=== PATIENT | female | born 1990 | race Caucasian/White ===

== ENCOUNTER 2017-12-03 08:09 | Emergency (ER) | payer BC ==
[2017-12-03] MEDS ORDERED: Famotidine 20 MG/2 ML SDV IVPUSH ONE (08:34)
--- NOTE | 2017-12-03 08:34 | EDM.PDOC ---
ED HPI GENERAL MEDICAL PROBLEM - General Chief Complaint: General Stated Complaint: Lip Swelling Time Seen by Provider: 12/03/17 08:25 Source of Information: Reports: Patient, Old Records ([facility] chart/EMR) - History of Present Illness INITIAL COMMENTS - FREE TEXT/NARRATIVE: The patient drove herself to the emergency room via private automobile for evaluation of mostly upper lip angioedema with symptoms occurring when she woke up this morning at about 7 AM. She denies any recent change in allergen exposure , change in medications, new clothing, insecticide exposure, etc. She has never had this happen before with no previous history of angioedema, etc. despite her known allergic rhinitis. Note that the patient has had a one-week history of nonspecific bilateral upper quadrant abdominal pain, which she currently rates at 3/10 with previous maximum discomfort at 8-10/10, with initial episode of some nausea, loose stools, and a couple of episodes of emesis a few days ago. She was evaluated by her regular provider, Madonna Lea PA-C, at [facility] in [place], with recent abdominal ultrasound on 11/28 showing some borderline splenomegaly and gallbladder enlargement without cholelithiasis, sludge, etc. No recent history of other abdominal pain, heartburn, diarrhea, melena, gross hematochezia, or any food intolerance, including fatty foods, etc. with borderline nausea at this time and a loose stool this morning.. She denies any gross hematuria, colic, or other UTI symptoms. The patient also denies any recent fever, cough, wheezing, dyspnea, etc.. She has not taken any medications for her discomfort to this point. Baby has remained active including this morning with no uterine contractions, vaginal discharge/spotting , or other signs of labor. Onset: Today, Gradual Onset Date: 12/03/17 Onset Time: 07:00 Duration: Getting Worse Location: Reports: Abdomen. Denies: Head, Face, Neck, Back, Upper Extremity, Left, Upper Extremity, Right, Lower Extremity, Right, Generalized, Radiates to Quality: Reports: Ache, Same as Previous Episode Severity: Mild Improves with: Reports: None Worsens with: Reports: None Context: Reports: Other (As above) Associated Symptoms: Reports: Nausea/Vomiting. Denies: No Other Symptoms, Confusion, Chest Pain, Cough, Fever/Chills, Headaches, Loss of Appetite, Malaise , Rash, Seizure, Shortness of Breath, Syncope, Weakness Treatments MANAGER TITLE: Reports: Other (see below) (None) Bilateral Upper Abdominal Pain Score (Numeric/FACES): 3 - Related Data Allergies Allergy/AdvReac Type Severity Reaction Status Date / Time No Known Allergies Allergy Verified 12/03/17 08:10 Home Meds: Home Meds Cyanocobalamin (Vitamin B-12) [Cyanocobalamin Injection] 1,000 mcg IJ Q30D 12/03 [History] Famotidine 20 mg PO BID #60 tablet 12/03/17 [Rx] Vit #108/Iron/FA [ One Tablet] 1 tab PO DAILY 12/03/17 [History ] diphenhydrAMINE [Benadryl] 50 mg PO Q4H PRN #100 cap 12/03/17 [Rx] Past Medical History HEENT History: Reports: Allergic Rhinitis, Impaired Vision, Other (See Below). Denies: Cataract, Glaucoma, Hard of Hearing, Macular Degeneration, Otitis Media , Retinal Detachment Other HEENT History: Seasonal allergies. Patient wears glasses and soft contacts. Cardiovascular History: Reports: None. Denies: Afib, Aneurysm, Arrhythmia, Blood Clots/VTE/DVT, CAD, Heart Murmur, High Cholesterol, Hypertension, ND, PVD , Syncope Respiratory History: Reports: Intubation, Previous, Other (See Below). Denies: Asthma, COPD, Intubation, Difficult, PE, Pneumothorax, Sleep Apnea Other Respiratory History: Reactive airway disease secondary to pneumonia in block breaker Gastrointestinal History: Reports: Chronic Diarrhea, GERD, Other (See Below). Denies: Celiac Disease, Chronic Constipation, Fecal Incontinence, Gastritis, GI Bleed, Hepatitis, Hiatal Hernia, Inflammatory Bowel Disease, Irritable Bowel Syndrome, Jaundice, Pancreatitis, PUD Other Gastrointestinal History: Mild borderline splenomegaly and gallbladder enlargement by ultrasound on 11/28/17. Genitourinary History: Reports: None. Denies: Acute Renal Failure, Chronic Renal Insuffiency, Renal Calculus, STD, Urinary Incontinence, UTI, Recurrent CREATIVE RESOURCE MANAGER History: Reports: . Denies: Dysfunctional Uterine Bleeding, Endometriosis, Fibroids : 2 Para: 1 LMP (Approximate): Other (See Below) Other CREATIVE RESOURCE MANAGER History: Currently at 17 weeks gestation. First delivery by at 39 weeks gestation secondary to failure to thrive in breech position. Otherwise no complications during pregnancies or deliveries. Musculoskeletal History: Reports: None, Fracture, Other (See Below). Denies: Amputation, Arthritis, Back Pain, Chronic, Gout, Neck Pain, Chronic, Osteoarthritis, RA, SLE Other Musculoskeletal History: Right elbow fracture at about age 5. Right rib fractures 3 at age 27. Neurological History: Reports: None, Headaches, Chronic, Migraines. Denies: Cerebral Aneurysms, Concussion, CVA, Head Trauma, MS, Parkinson's, Seizure, TIA Psychiatric History: Reports: None. Denies: Abuse, Victim of, ADD, ADHD, Addiction, Anxiety, Depression, Psych Hospitalization(s), PTSD, Suicide Attempt , Suicidal Ideation Endocrine/Metabolic History: Reports: Obesity/BMI 30+. Denies: Diabetes, Gestational, Diabetes, Type I, Diabetes, Type II, Diabetes Mellitus, Type 3c, Hypothyroidism, IDDM Hematologic History: Reports: Anemia, B12 Deficiency, Iron Deficiency, Other ( See Below). Denies: Blood Transfusion(s) Other Hematologic History: Iron deficiency during pregnancies. Immunologic History: Reports: None. Denies: AIDS, HIV, SLE Oncologic (Cancer) History: Reports: None. Denies: Basal Cell Carcinoma, Breast , Cervix, Hodgkin's Lymphoma, Leukemia, Lymphoma, Malignant Melanoma, Non- Hodgkin's Lymphoma, Squamous Cell Carcinoma Dermatologic History: Reports: None. Denies: Angiodema, Eczema, Psoriasis, Urticaria - Infectious Disease History Infectious Disease History: Reports: Chicken Pox. Denies: C-Difficile, Measles , Meningitis, Mononucleosis, MRSA, Mumps, Pertussis (Whooping Cough), Rubella, Scarlet Fever, Shingles, VRE - Past Surgical History Head Surgeries/Procedures: Reports: None HEENT Surgical History: Reports: Adenoidectomy, Oral Surgery, Tonsillectomy. Denies: Myringotomy w Tube(s) Other HEENT Surgeries/Procedures: Simms teeth extraction 2 uppers at about age 15. Tonsillectomy and adenoidectomy on 12/27/98. Cardiovascular Surgical History: Reports: None. Denies: Varicose, Vascular Surgery Respiratory Surgical History: Reports: None. Denies: Thoracentesis GI Surgical History: Reports: Appendectomy, Bariatric Procedure, Other (See Below). Denies: Cholecystectomy, Colonoscopy, EGD, Hernia, Abdominal, Hernia, Inguinal, Hernia Repair/Other Other GI Surgeries/Procedures: Appendectomy on 10/05/12. Gastric bypass surgery on 06/19/12. Female Surgical History: Reports: Section, Other (See Below). Denies: Breast Biopsy, D&C, Oophorectomy, Salpingo-Oophorectomy, Tubal Ligation Other Female Surgeries/Procedures: as above. Endocrine Surgical History: Reports: None. Denies: Thyroid Biopsy Neurological Surgical History: Reports: None. Denies: C-Spine, Discectomy, Laminectomy, Lumbar Spine, Sacral Spine, Spinal Fusion, Thoracic Spine, Vertebroplasty Musculoskeletal Surgical History: Reports: Other (See Below). Denies: Arthroscopic Procedure, Carpal Tunnel, Ganglion Cyst, Joint Replacement, ORIF, Shoulder Surgery Other Musculoskeletal Surgeries/Procedures:: Right foot surgery secondary to "extra bone" resection at age 17. Oncologic Surgical History: Reports: None Dermatological Surgical History: Reports: None - Past Imaging History Past Imaging History: Reports: CAT Scan (CT of the abdomen and pelvis on .), Ultrasound (OB ultrasounds. Abdominal ultrasound on 11/28/17.) Social & Family History - Tobacco Use Smoking Status *Q: Never Smoker Tobacco Use Within Last Twelve Months: No Used Tobacco, but Quit: No Smoking Cessation Information Provided To Patient: No Second Hand Smoke Exposure: No Second Hand Smoke Education Provided: No - Caffeine Use Caffeine Use: Reports: Coffee (One cup per day). Denies: Energy Drinks, Soda, Tea - Alcohol Use Alcohol Use History: Yes Days Per Week of Alcohol Use: 0 Number of Drinks Per Day: 2 Number of Drinks Per Day Comment: Either mixed drink or wine about once per month. No previous DWIs, problems with alcohol abuse, etc. She does not use alcohol during pregnancies. Total Drinks Per Week: 0 Alcohol Use in Last Twelve Months: Yes Alcohol Use Frequency: Rarely - Recreational Drug Use Recreational Drug Use: No Drug Use in Last 12 Months: No Recreational Drug Type: Denies: Amphetamines (Speed), Cocaine, Heroin, Inhalants (Glues, Solvents, Aerosols), LSD (Acid), Marijuana/Hashish, Methamphetamine, Morphine, Oxycodone - Living Situation & Occupation Living situation: Reports: (10/09/15. One child and currently ), with Family Occupation: Employed (Self employed as daycare provider.) ED ROS GENERAL - Review of Systems Review Of Systems: ROS reveals no pertinent complaints other than HPI. ED EXAM, GENERAL - Physical Exam Exam: See Below Exam Limited By: No Limitations General Appearance: Alert, WD/WN, No Apparent Distress Eye Exam: Bilateral Eye: EOMI, Normal Fundi (No nystagmus), Normal Inspection, PERRL Ears: Normal External Exam, Normal Canal, Hearing Grossly Normal, Normal TMs Nose: Normal Inspection, Normal Mucosa, No Blood Throat/Mouth: Other (Mild angioedema of the lips mostly uppers and borderline lowers). No: Normal Teeth, Normal Gums, Normal Oropharynx, Normal Voice, No Airway Compromise, Dysphagia, Inflammation, Perioral Cyanosis Head: Atraumatic, Normocephalic. No: Facial Swelling, Facial Tenderness, Sinus Tenderness Neck: Normal Inspection, Supple, Non-Tender, Full Range of Motion. No: Lymphadenopathy (L), Lymphadenopathy (R), Thyromegaly Respiratory/Chest: No Respiratory Distress, Lungs Clear, Normal Breath Sounds, No Accessory Muscle Use, Chest Non-Tender. No: Pleural Rub, Retractions Cardiovascular: Normal Peripheral Pulses, Regular Rate, Rhythm, No Edema, No Gallop, No JVD, No Murmur, No Rub. No: Gallop/S3, Gallop/S4, Friction Rub Peripheral Pulses: 2+: Radial (L), Radial (R), Dorsalis Pedis (L), Dorsalis Pedis (R) GI/Abdominal: Normal Bowel Sounds, Soft, Non-Tender, No Organomegaly, No Distention, No Abnormal Bruit, No Mass, Other (Obese). No: Guarding (Female) Exam: Enlarged Uterus (Appropriate for gestational age), Other ( Complete exam not conducted) Rectal (Female) Exam: Deferred Back Exam: Normal Inspection, Full Range of Motion. No: CVA Tenderness (L), CVA Tenderness (R), Muscle Spasm Extremities: Normal Inspection, Normal Range of Motion, Non-Tender, No Pedal Edema, Normal Capillary Refill. No: [place]'s Sign Neurological: Alert, Oriented, CN II-XII Intact, Normal Cognition, Normal Gait, Normal Reflexes, No Motor/Sensory Deficits Psychiatric: Normal Affect, Normal Mood Skin Exam: Warm, Dry, Intact, Normal Color, No Rash, Other (Lipedema as above). No: Diaphoretic, Jaundice, Pallor, Wound/Incision Lymphatic: No Adenopathy Course - Vital Signs Last Recorded V/S: Last Vital Signs Temp 36.8 C 12/03/17 08:10 Pulse 60 12/03/17 08:10 Resp 14 12/03/17 08:10 BP 119/74 12/03/17 08:10 Pulse Ox 100 12/03/17 08:10 Vital Signs - 24 hr 12/03/17 08:10 Temperature [ 36.8 C Temporal] Pulse, 60 Peripheral [ Pulse Oximetry] Respiratory 14 Rate Blood Pressure 119/74 [Right Upper Arm] O2 Sat by Pulse 100 Oximetry - Orders/Labs/Meds Orders: Active Orders 24 hr Category Date Time Status Obtain Past Medical Record [OM.PC] Routine Oth 12/03/17 08:34 Active Labs: Laboratory Tests 12/03/17 12/03/17 Range/Units 08:34 08:34 WBC 7.4 (4.0-10.2) K/uL RBC 3.87 (3.77-5.09) M/uL Hgb 11.3 L (11.7-15.5) g/dL Hct 33.6 L (34.0-46.0) % MCV 86.8 (84.0-98.0) fL MCH 29.2 (28.2-33.3) pg MCHC 33.6 (31.7-36.0) g/dL RDW 15.6 H (11.2-14.1) % Plt Count 245 (150-350) K/uL Neut % (Auto) 64.6 (45.0-80.0) % Lymph % (Auto) 27.1 (10.0-50.0) % [place] % (Auto) 7.2 (2.0-14.0) % Eos % (Auto) 0.7 (0.0-5.0) % Baso % (Auto) 0.4 (0.0-2.0) % Neut # (Auto) 4.79 (1.40-7.00) K/uL Lymph # (Auto) 2.01 (0.50-3.50) K/uL [place] # (Auto) 0.53 (0.00-1.00) K/uL Eos # (Auto) 0.05 (0.00-0.50) K/uL Baso # (Auto) 0.03 (0.00-0.20) K/uL Sodium 137 (136-145) mmol/L Potassium 3.8 (3.5-5.1) mmol/L Chloride 105 (98-107) mmol/L Carbon Dioxide 24.0 (21.0-32.0) mmol/L BUN 7 (7-18) mg/dL Creatinine 0.57 (0.51-1.17) mg/dL Est Cr Clr Drug Dosing 160.32 mL/min Estimated GFR (MDRD) > 60 mL/min Glucose 87 (74-106) mg/dL Calcium 8.4 L (8.5-10.1) mg/dL Total Bilirubin 0.3 (0.2-1.0) mg/dL AST 13 L (15-37) U/L ALT 22 (12-78) U/L Alkaline Phosphatase 40 L (46-116) IU/L Total Protein 6.6 (6.4-8.2) g/dL Albumin 3.1 L (3.4-5.0) g/dL Amylase 41 (25-115) U/L Lipase 284 (73-393) U/L Meds: Medications Discontinued Medications Generic Name Dose Route Start Last Admin Trade Name Erasmoq PRN Reason Stop Dose Admin Diphenhydramine HCl 50 mg 12/03/17 08:35 12/03/17 08:41 Benadryl IVPUSH 12/03/17 08:36 50 mg ONETIME ONE Administration Famotidine 40 mg 12/03/17 08:34 12/03/17 08:44 Pepcid IVPUSH 12/03/17 08:35 40 mg ONETIME ONE Administration Lactated Ringer's 1,000 mls @ 999 mls/hr 12/03/17 08:35 12/03/17 08:46 Ringers, Lactated IV 12/03/17 09:35 999 mls/hr .BOLUS ONE Administration - Radiology Interpretation Free Text/Narrative:: None Departure - Departure Time of Disposition: 10:05 Disposition: Home, Self-Care 01 Condition: Good Clinical Impression: Angioedema, , Allergic rhinitis, Peptic reflux disease, Obesity (BMI 30-39.9), Anemia, Hypoalbuminemia, Abdominal pain - Discharge Information *PRESCRIPTION DRUG MONITORING PROGRAM REVIEWED*: Not Applicable *COPY OF PRESCRIPTION DRUG MONITORING REPORT IN PATIENT CL: Not Applicable Prescriptions: diphenhydrAMINE [Benadryl] 50 mg PO Q4H PRN #100 cap PRN Reason: Allergies Famotidine 20 mg PO BID #60 tablet Instructions: Diphenhydramine injection, Angioedema, [id number], Heartburn, [id number], Angioedema, Abdominal Pain, Adult, [id number], Famotidine injection Referrals: Jackie Aguirre MD [Primary Care Provider] - Forms: ED Department Discharge Additional Instructions: 1. Follow-up with your OB doctor at [facility] in [place] tomorrow as already scheduled. 2. Follow up with your regular provider in 10-14 days as needed, if symptoms persist. Bring these discharge instructions with you to that visit.. 3. [place] diet including encouragement of oral fluids such as sports drinks, etc. for 24-48 hours as directed. Advance to regular diet as tolerated thereafter. 4. Immediately after this visit verify that your cellular telephone's voicemail has been activated and is empty. Also verify that your home telephone 's answering machine is operating properly and has space to receive messages. Note that it is sometimes necessary for us to be able to contact you at a later date to discuss your medical care. 5. Sedation precautions with Benadryl with next dose due in 3 hours as needed 6. Next dose of famotidine tomorrow morning and take for at least one week as discussed 7. Tylenol 650 mg by mouth every 4 hours when necessary as directed. - Problem List & Annotations (1) Angioedema SNOMED Code(s): 23007058 Code(s): T78.3XXA - ANGIONEUROTIC EDEMA, INITIAL ENCOUNTER Status: Acute Priority: High Current Visit: No Onset Date: 12/03/17 Annotation/Comment: : Mild angioedema on arrival. Various therapeutic options were discussed with the patient. No epinephrine therapy given secondary to only mild symptoms as above and current intrauterine . Only some response to aggressive treatment in the emergency room as above. Continue symptomatic relief as per discharge instructions. Qualifiers: Encounter type: initial encounter Qualified Code(s): T78.3XXA - Angioneurotic edema, initial encounter (2) SNOMED Code(s): 95127389 Code(s): Z34.90 - ENCNTR FOR SUPRVSN OF NORMAL , UNSP, UNSP TRIMESTER Status: Chronic Priority: Medium Current Visit: No Annotation/ Comment:: Currently nonproblematic. Note OB appointment at [facility] already scheduled for tomorrow or discussion of recent abdominal ultrasounds indicating borderline gallbladder distention and splenomegaly. Likely continued observation for now with normal amylase, lipase, LFTs, etc. Qualifiers: Weeks of gestation: 17 weeks Qualified Code(s): Z3A.17 - 17 weeks gestation of (3) Allergic rhinitis SNOMED Code(s): 75958264 Code(s): J30.9 - ALLERGIC RHINITIS, UNSPECIFIED Status: Chronic Priority : Medium Current Visit: No Annotation/Comment:: Stable by history with no current medical therapy required. Qualifiers: Allergic rhinitis trigger: unspecified Allergic rhinitis seasonality: unspecified Qualified Code(s): J30.9 - Allergic rhinitis, unspecified (4) Peptic reflux disease SNOMED Code(s): 534842692 Code(s): K21.9 - GASTRO-ESOPHAGEAL REFLUX DISEASE WITHOUT ESOPHAGITIS Status: Chronic Priority: Medium Current Visit: No Annotation/Comment:: Previously relatively stable on low-dose OTC Pepcid. Note current nonspecific abdominal pain as above. Close follow-up by her OB and regular providers. (5) Obesity (BMI 30-39.9) SNOMED Code(s): 914437820, 068192413 Code(s): E66.9 - OBESITY, UNSPECIFIED Status: Chronic Priority: Medium Current Visit: No Annotation/Comment:: Note status post gastric bypass surgery and current . (6) Anemia SNOMED Code(s): 365200982 Code(s): D64.9 - ANEMIA, UNSPECIFIED Status: Chronic Priority: Medium Current Visit: No Annotation/Comment:: Previous history of vitamin B-12 deficiency currently under therapy. Likely anemia of as contributing factor. Qualifiers: Anemia type: other cause Other causes of anemia: other cause, not classified Qualified Code(s): D64.89 - Other specified anemias (7) Hypoalbuminemia SNOMED Code(s): 896837135 Code(s): E88.09 - OTH DISORDERS OF PLASMA-PROTEIN METABOLISM, NEC Status: Acute Priority: Medium Current Visit: No Onset Date: 12/03/17 Annotation /Comment:: Likely mild hypoalbuminemia of . Observe for now. (8) Abdominal pain SNOMED Code(s): 18719501 Code(s): R10.9 - UNSPECIFIED ABDOMINAL PAIN Status: Acute Priority: High Current Visit: Yes Onset Date: ~11/26/17 Annotation/Comment:: As above Qualifiers: Abdominal location: upper abdomen, unspecified Qualified Code(s): R10.10 - Upper abdominal pain, unspecified - Problem List Review Problem List Initiated/Reviewed/Updated: Yes - My Orders Last 24 Hours: My Active Orders 12/03/17 08:34 Obtain Past Medical Record [OM.PC] Routine - Assessment/Plan Last 24 Hours: My Active Orders 12/03/17 08:34 Obtain Past Medical Record [OM.PC] Routine Assessment:: As above. Plan: As above. Extensive precautions were given to the patient, who is in agreement with the treatment plan. See Patient Instructions for further treatment and plan.
[2017-12-03] MEDS ORDERED: Lactated Ringers 1,000 ML IV ONE (08:35)
[2017-12-03] MEDS ORDERED: diphenhydrAMINE 50 MG/ML SDV IVPUSH ONE (08:35)
[2017-12-03 08:59] LABS: CHLORIDE,CL 105 mmol/L (98-107); SODIUM,NA 137 mmol/L (136-145)
== END 2017-12-03 10:05 | disposition home or self-care (01) ==
LOC: LL.ED 08:09
DX: O99.89 Other specified diseases and conditions complicating pregnancy, childbirth and the puerperium (principal); T78.3XXA Angioneurotic edema, initial encounter; O99.512 Diseases of the respiratory system complicating pregnancy, second trimester; J30.9 Allergic rhinitis, unspecified; O99.612 Diseases of the digestive system complicating pregnancy, second trimester; K21.9 Gastro-esophageal reflux disease without esophagitis; O99.012 Anemia complicating pregnancy, second trimester; O99.282 Endocrine, nutritional and metabolic diseases complicating pregnancy, second trimester; E66.9 Obesity, unspecified; E88.09 Other disorders of plasma-protein metabolism, not elsewhere classified; Z3A.17 17 weeks gestation of pregnancy; Z79.899 Other long term (current) drug therapy
CPT/HCPCS: 36415; 80053; 82150; 83690; 85025; 96361; 96374; 96375; 99284; J1200; J3490; J7120

== ENCOUNTER 2021-10-05 20:43 | Emergency (ER) | payer BC ==
[2021-10-05] MEDS ORDERED: Morphine 2 MG/ML SYRINGE IVPUSH ONE ×2 (21:56→22:53)
[2021-10-05] MEDS: Sodium Chloride 0.9% 10 ML Syringe FLUSH PRN ×2 (22:04→23:10)
== END 2021-10-05 23:53 | disposition home or self-care (01) ==
LOC: LL.ED 20:43
DX: S82.002A Unspecified fracture of left patella, initial encounter for closed fracture (principal); K21.9 Gastro-esophageal reflux disease without esophagitis; E66.9 Obesity, unspecified; Z68.39 Body mass index [BMI] 39.0-39.9, adult; W00.0XXA Fall on same level due to ice and snow, initial encounter
CPT/HCPCS: 73562-LT; 96374; 96376; 99283-25; J2270; J3490